=== PATIENT | female | born 1945 | race Caucasian/White ===

== ENCOUNTER → 2022-12-04 | Outpatient (CLI) | payer MEDICARE, MEDICAID ==
[~2022-12-04] MED LIST: ALLO100T PO; AMLO5TAB88 PO; ASPI-1497 PO; ATOR-2 PO; CARV6.2548 PO; DAPA10TA PO; GLIP5TAB12 PO; ISOS10TA2 PO; LEVO100T9 PO; REGADENOSON 0.4 MG/5 ML IV ONE
== END | disposition home or self-care (01) ==
LOC: NM 08:24
PROVIDERS: ATTEND Internal Medicine
DX: I50.22 Chronic systolic (congestive) heart failure (principal)
CPT/HCPCS: 78452; 93017; A9500; J2785